=== PATIENT | female | born 1995 | race Two or more races ===

== ENCOUNTER 2025-09-14 04:52 | Emergency (ER) | payer OTHER ==
[~2025-09-14] VITALS: Ht 175.3 cm; Wt 56.7 kg
[2025-09-14] MEDS ORDERED: MORPHINE SULFATE INJ 2 MG/ML DISP.SYRIN IV ONE (05:00)
[2025-09-14] MEDS ORDERED: KETOROLAC TROMETHAMINE INJ 30 MG/ML VIAL ONE (05:08)
[2025-09-14] MEDS ORDERED: ONDANSETRON HCL/PF 4 MG/2 ML VIAL ONE (05:08)
[2025-09-14] MEDS: ONDANSETRON HCL/PF 4 MG/2 ML VIAL IVP ONE (05:12)
[2025-09-14] MEDS: KETOROLAC TROMETHAMINE INJ 30 MG/ML VIAL IV ONE (05:12)
[2025-09-14] MEDS: IV NS 0.9% 1,000 ML BAG IV ONE (05:12)
[2025-09-14 05:22] LABS: PLATELET COUNT (AUTO) 310 K/uL (150-450); RED BLOOD CELL COUNT(AUTO) 4.42 MIL/uL (4.0-5.2); RED CELL DISTRIBUTION WIDTH 13.1 % (11.5-15.0); WHITE BLOOD COUNT (AUTO) 11.9 K/uL (4.3-11.0)
[2025-09-14 05:31] LABS: CALCIUM, SERUM 8.8 mg/dL (8.5-10.1); CREATININE 0.8 mg/dL (0.6-1.3); UREA NITROGEN, BLOOD 13.0 mg/dL (7-18)
[2025-09-14 05:36] LABS: ASPARTATE AMINOTRANSFERASE 22.0 U/L (15-37); SODIUM SERUM 146.0 mmol/L (136-145); TOTAL PROTEIN, SERUM 8.3 g/dL (6.4-8.2)
[2025-09-14] MEDS ORDERED: POTASSIUM CHLORIDE 20 MEQ TAB.PRT.SR PO ONE (06:43)
[2025-09-14] MEDS: POTASSIUM CHLORIDE 20 MEQ TAB.PRT.SR PO ONE (06:47)
[2025-09-14 07:15] LABS: CALCIUM, SERUM 8.2 mg/dL (8.5-10.1); CREATININE 0.8 mg/dL (0.6-1.3); SODIUM SERUM 148.0 mmol/L (136-145); UREA NITROGEN, BLOOD 14.0 mg/dL (7-18)
[2025-09-14 07:30] LABS: PREGNANCY TEST SERUM QUAN 0.0 mIU/mL (0-6)
[2025-09-14 09:18] LABS: APPEARANCE,URINE SLIGHTLY CLOUDY (CLEAR); BLOOD, URINE NEGATIVE Ery/uL (NEGATIVE); LEUKOCYTE ESTERASE ,URINE 2+ (NEGATIVE); NITRITE, URINE NEGATIVE (NEGATIVE); UGLUCOSE NEGATIVE (NEGATIVE)
[2025-09-14 09:19] LABS: PREGNANCY TEST URINE QUAL NEGATIVE (NEGATIVE)
[2025-09-14 09:26] LABS: ADD URINE CULTURE YES
[2025-09-14 10:01] VITALS: BP 103/86; TEMP 98.5; O2SAT 99
== END 2025-09-14 09:30 | disposition home or self-care (01) ==
LOC: ER 04:56 → EDBD 04:56 → ER 09:30
DX: N83.201 Unspecified ovarian cyst, right side (principal); Z87.442 Personal history of urinary calculi
CPT/HCPCS: 99285; 74176; 96374; 76856; 96375; 96361; 93005; 85025; 80048 ×2; 87086; 83690; 80076; 83735; 84703; 81001; 36415; 84702; J1885; J2405; J7030